=== PATIENT | male | born 1985 | race Caucasian/White ===

== ENCOUNTER 2020-07-05 09:53 | Emergency (ER) | payer SELFPAY ==
[2020-07-05] MEDS ORDERED: ALBUTEROL SULFATE 0.083% NEB 2.5 MG/3 ML AMPUL NEB ONE (10:03)
[2020-07-05] MEDS ORDERED: METHYLPREDNISOLONE INJ 125 MG/2 ML SDV IM ONE (10:03)
--- NOTE | 2020-07-05 10:08 | ER Document Report ---
ED Medical Screen (RME) - General Chief Complaint: Shortness Of Breath Stated Complaint: SHORTNESS OF BREATH/MED REFILL Time Seen by Provider: 07/05/20 10:00 - HPI Notes: 07/05/20 10:04 35-year-old male presents to ED for evaluation of increased shortness of breath. Patient reports that he has history of asthma. Notes increased wheezing. States he has been using an [id number] inhaler as he does not have insurance. Notes that he does not feel any improvement. Patient is audibly wheezing. Denies concerns for Covid at this time. Patient does have a nebulizer at home but is out of medications. Denies fever, chills, nausea. vomiting, or other complaints. - Related Data Allergies/Adverse Reactions: No Known Allergies Allergy (Unverified 07/05/20 10:01) Physical Exam - Vital signs Vitals: Temp Pulse Resp BP Pulse Ox 98.1 F 89 24 H 148/75 H 95 07/05/20 09:58 07/05/20 09:58 07/05/20 09:58 07/05/20 09:58 07/05/20 09:58 General: Alert and oriented x3. Sitting comfortably in a stretcher. Skin: Intact without any jaundice, pallor, or erythema. Warm and dry. Heart: Regular rate and rhythm. S1,S2. No murmurs, rubs, or gallops. Lungs: Audible expiratory and inspiratory wheezes without rhonchi, rales. Equal chest expansion. No retractions. Abdomen: Soft, nontender to palpation, nondistended. Positive bowel sounds in all 4 quadrants. No hepatosplenomegaly. No masses. No CVA tenderness bilaterally. Neuro: GCS 15. Moving all extremities without discomfort. Psych: Mood and affect appropriate. Course - Vital Signs Vital signs: Temp Pulse Resp BP Pulse Ox 98.1 F 89 24 H 148/75 H 95 07/05/20 09:58 07/05/20 09:58 07/05/20 09:58 07/05/20 09:58 07/05/20 09:58
--- NOTE | 2020-07-05 10:41 | RADIOLOGY REPORT (SQ) ---
EXAM DESCRIPTION: CHEST SINGLE VIEW IMAGES COMPLETED DATE/TIME: 07/05/2020 10:23 am REASON FOR STUDY: cough COMPARISON: None. NUMBER OF VIEWS: One view. TECHNIQUE: Single frontal radiographic view of the chest acquired. LIMITATIONS: None. FINDINGS: LUNGS AND PLEURA: No opacities, masses or pneumothorax. No pleural effusion. MEDIASTINUM AND HILAR STRUCTURES: No masses. Contour normal. HEART AND VASCULAR STRUCTURES: Heart normal in size. Normal vasculature. BONES: No acute findings. HARDWARE: None in the chest. OTHER: No other significant finding. IMPRESSION: NO SIGNIFICANT RADIOGRAPHIC FINDING IN THE CHEST. TECHNICAL DOCUMENTATION: JOB ID: [id number] [employer]- All Rights Reserved Reading location - IP/workstation name: [email or web address]
[2020-07-05] MEDS ORDERED: ALBUTEROL SULFATE HFA (90 MCG/PUFF) 8 GM MDI (1 MDI/ER DISP) IH ONE (12:25)
--- NOTE | 2020-07-05 12:29 | ER Document Report ---
HPI - HPI Time Seen by Provider: 07/05/20 10:00 Pain Level: Denies Context: Patient is a 35-year-old male who comes emergency department for chief complaint of wheezing, cough, shortness of breath, asthma exacerbation. He has a known history of asthma and he also smokes. He states that he has had worsening symptoms over the past couple of days. He denies fever/chills, nausea/vomiting, sore throat, congestion, or any sick symptoms. He received IM Solu-Medrol and albuterol nebulizer from [facility] and now has no current complaints. He denies any other medical history. - RESPIRATORY Respiratory: REPORTS: Trouble Breathing, Coughing - REPRODUCTIVE Reproductive: DENIES: : Past Medical History - General Information source: Patient - Social History Smoking Status: Current Every Day Smoker Chew tobacco use (# tins/day): No Smoking Education Provided: Yes - <3 min Frequency of alcohol use: None Drug Abuse: None Lives with: Family Family History: Reviewed & Not Pertinent Patient has homicidal ideation: No - Medical History Medical History: Negative Pulmonary Medical History: Reports: Hx Asthma - Immunizations Immunizations up to date: Yes Hx Diphtheria, Pertussis, Tetanus Vaccination: Yes Vertical Provider Document - CONSTITUTIONAL General Appearance: WD/WN, No Apparent Distress - HEENT HEENT: Atraumatic, Normocephalic - NECK Neck: Normal Inspection - RESPIRATORY Respiratory: Breath Sounds Normal, No Respiratory Distress. negative: Wheezing - CARDIOVASCULAR Cardiovascular: Regular Rate, Regular Rhythm. negative: Tachycardia - GI/ABDOMEN Gastrointestinal: Abdomen Soft, Abdomen Non-Tender - BACK Back: Normal Inspection - MUSCULOSKELETAL/EXTREMETIES Musculoskeletal/Extremeties: MAEW, FROM, Non-Tender - NEURO Level of Consciousness: Awake, Alert, Appropriate Motor/Sensory: No Motor Deficit, No Sensory Deficit - DERM Integumentary: Warm, Dry, No Rash Course - Re-evaluation Re-evalutation: No wheezing on my exam, apparently this resolved after treatment. Chest x-ray reviewed and unremarkable. Patient with no other complaints. Discussed milking cessation. Discussed treatment, follow-up, return precautions. Patient states appreciation and agreement. Stable and well-appearing at time of discharge. - Vital Signs Vital signs: Temp Pulse Resp BP Pulse Ox 98.1 F 89 24 H 148/75 H 95 07/05/20 09:58 07/05/20 09:58 07/05/20 09:58 07/05/20 09:58 07/05/20 09:58 - Laboratory Results Critical Laboratory Results Reviewed: No Critical Results - Radiology Results Critical Radiology Results Reviewed: No Critical Results Discharge - Discharge Clinical Impression: Wheezing Asthma exacerbation Qualifiers: Asthma severity: mild Asthma persistence: intermittent Qualified Code(s): J45.21 - Mild intermittent asthma with (acute) exacerbation Condition: Stable Disposition: HOME, SELF-CARE Additional Instructions: Your evaluation is consistent with an asthma exacerbation, your chest x-ray does not show any concerning findings. Take the prednisone as prescribed, use albuterol if needed, stop smoking. Follow-up with primary care. Return if you worsen including difficulty breathing, developing fever, or any other concerning or worsening symptoms. Prescriptions: Prednisone [Deltasone 20 mg Tablet] 3 tab PO DAILY 5 Days #15 tablet Albuterol Sulfate [Proair HFA Inhalation Aerosol 8.5 gm MDI] 2 puff IH Q4H PRN #1 mdi PRN Reason: Forms: Smoking Cessation Education, Return to Work
[2020-07-05 12:50] VITALS: BP 129/80
== END 2020-07-05 12:50 | disposition home or self-care (01) ==
LOC: ER 09:53
DX: J45.21 Mild intermittent asthma with (acute) exacerbation (principal); R05 Cough; R06.02 Shortness of breath; F17.200 Nicotine dependence, unspecified, uncomplicated
CPT/HCPCS: 94640; 99284; 96372; 71045; J2930; J7613; J3490